=== PATIENT | female | born 1975 | race Caucasian/White ===

== ENCOUNTER 2018-05-12 05:48 | Day surgery (SDC) | payer BC ==
[~2018-05-12] VITALS: Ht 167.6 cm; Wt 145.1 kg
--- NOTE | ~2018-05-12 | O ---
[facility] [place] [address] OPERATIVE REPORT Name: SAMEER GENTILE Room #: 150-8 [facility] M.R.#: [id number] Admission: 05/12/18 Attend Phys: Skyler Castano Discharge: Date of : 79 Report #: [id number] THIS REPORT FOR: //name// CC: Skyler Todd DATE OF SERVICE: 05/12/2018 PREOPERATIVE DIAGNOSES: Left knee pain, effusion, lateral meniscus tear, chondromalacia. POSTOPERATIVE DIAGNOSES: Left knee lateral meniscus tear, grade 3 chondromalacia of medial femoral condyle, grade 2 chondromalacia of lateral compartment, grade 2 chondromalacia of patella, intraarticular loose body, some intra-articular synovitis. PROCEDURE PERFORMED: Left knee arthroscopy, partial lateral meniscectomy, tricompartmental chondroplasty, loose body removal and synovectomy. SURGEON: Skyler Kinney MD ANESTHESIA: General per Dr. Lorenza De Los Santos. FLUIDS: Please see anesthesia records. ESTIMATED BLOOD LOSS: Less than 5 mL. DESCRIPTION OF PROCEDURE: After proper identification of the patient and operative site in preoperative holding area, the operative site was signed by myself. Prophylactic antibiotics given. The patient elected to receive general anesthesia after reviewing the risks, benefits, alternatives and its complications with Dr. De Los Santos. The patient was then brought back to the operative suite after induction of satisfactory general anesthesia per LMA. The left knee was examined. It was stable throughout a full arc of motion comparable to the right knee and preoperative assessment. Tourniquet was applied to the upper thigh. Lateral post was utilized due to body habitus. Limb was sterilely prepped and draped in usual manner, elevated, then exsanguinated with an Esmarch. Tourniquet was inflated to 350 mmHg. A superior medial portal was created for inflow purposes. Joint was inflated by gravity inflow with normal saline. An anterolateral and then an anteromedial portal were created using a spinal needle for localization. Examination of the suprapatellar pouch, medial and lateral gutters revealed some hypertrophic intra-articular synovitis that was carefully debrided. Multiple small chondral loose bodies were noted and were carefully debrided. Fibrillation and fraying was noted on both the medial and lateral patellar facets. This area was carefully debrided with motorized shaver, back to a stable chondral surface. [address] [address] OPERATIVE REPORT Name: SAMEER GENTILE Zack Room #: 150-8 [facility] Gabriel#: [id number] Admission: 05/12/18 Attend Phys: Skyler Castano Discharge: Date of : 79 Report #: [id number] This was more superficial in nature. Medial compartment knee revealed diffuse grade 3 chondral changes. Loose chondral flaps are noted on the periphery and these were carefully debrided. No exposed bone was noted. Medial meniscus was stable and intact to probing. Minimal changes noted in the medial compartment. Anterior and posterior cruciate ligaments are intact and stable to probing. Lateral compartment of the knee revealed a complex tear of the lateral meniscus that involved the posterior horn, mid body and anterior horn. Combination of hand and motorized instrumentation was used to perform a partial lateral meniscectomy. Softening and fibrillation of the lateral tibial plateau was noted. The knee was thoroughly irrigated with normal saline. Portals closed with simple nylon stitch. A 20 mL of 0.2% Naropin was injected to aid in postoperative pain control. Sterile compressive dressing was applied. She was awakened and transferred to the recovery room in stable condition. By: [id number] Skyler Kinney MD /nt
[~2018-05-12 05:48] MED LIST: CLONAZEPAM 0.50.5 M1 PO; FLONASE 0.05%50 MCG NASAL; ZOLOFT50 MG PO; ZYRTEC10 M5 PO
[2018-05-12 09:11] VITALS: BP 124/79
[2018-05-12 11:01] VITALS: BP 124/79
== END 2018-05-12 11:55 | disposition home or self-care (01) ==
LOC: OR 05:48 → TBA 05:49 → OR 08:41
DX: S83.282A Other tear of lateral meniscus, current injury, left knee, initial encounter (principal); M94.262 Chondromalacia, left knee; M65.862 Other synovitis and tenosynovitis, left lower leg; F31.9 Bipolar disorder, unspecified; F41.9 Anxiety disorder, unspecified; X58.XXXA Exposure to other specified factors, initial encounter; Y93.89 Activity, other specified; Y92.89 Other specified places as the place of occurrence of the external cause; Y99.8 Other external cause status; Z98.890 Other specified postprocedural states; Z91.040 Latex allergy status; Z79.899 Other long term (current) drug therapy
CPT/HCPCS: 50010; 50101; 50405; 51038; 54170; 56526; 62110; 62900; 70005